=== PATIENT | male | born 1960 | race African-American/Black ===

== ENCOUNTER 2018-02-04 08:53 | Day surgery (SDC) | payer OTHER ==
[2018-02-03 14:45] VITALS: BMI 28.0
[2018-02-04 15:07] VITALS: TEMP 98.2
[2018-02-04 17:41] VITALS: BP 141/78; PULSE 74
== END 2018-02-04 16:00 | disposition home or self-care (01) ==
LOC: JASU-SURG 08:53
PROVIDERS: ATTEND Urology
PROC: 0TC78ZZ Extirpation of Matter from Left Ureter, Via Natural or Artificial Opening Endoscopic (ICD-10-PCS; principal; 2018-02-04)
PROC: 0T778DZ Dilation of Left Ureter with Intraluminal Device, Via Natural or Artificial Opening Endoscopic (ICD-10-PCS; 2018-02-04)
PROC: BT1FYZZ Fluoroscopy of Left Kidney, Ureter and Bladder using Other Contrast (ICD-10-PCS; 2018-02-04)
DX: N20.0 Calculus of kidney (principal); N40.0 Benign prostatic hyperplasia without lower urinary tract symptoms; N32.89 Other specified disorders of bladder
CPT/HCPCS: 36415; 76000-TC-FY; 81003; 81015; 82360; 87086; 88300-TC; 94760

== ENCOUNTER 2023-10-26 16:40 | Day surgery (SDC) | payer OTHER ==
[2023-10-26 16:59] VITALS: BMI 28.5
[2023-10-26] MEDS ORDERED: ACETAMINOPHEN 1000 MG/100 ML BAG IVPB ONE (17:39)
[2023-10-26] MEDS ORDERED: ACETAMINOPHEN INJECTION 100 ML IVPB ONE (18:48)
[2023-10-26 18:51] LABS: HEMATOCRIT 47.1 % (35.4-49); HEMOGLOBIN 15.7 GM/dL (11.7-16.9); MCH 27.6 pg (25.7-33.7); MCHC 33.3 g/dl (32.0-35.9); MEAN CELL VOLUME 82.9 fl (80-96); MEAN PLT VOLUME 8.1 fl (7.5-11.1); PLATELET COUNT 269 10^3/uL (134-434); RBC 5.68 M/mm3 (4.00-5.60); RDW 13.9 % (11.9-15.9); WHITE BLOOD COUNT 5.1 K/mm3 (4.0-10.0)
[2023-10-26 18:55] LABS: EPI CELLS 13 /uL (0-25.1); HYALINE CASTS 0 /uL (0-3.1); URINE APPEARANCE CLEAR; URINE BACTERIA 3 /uL (0-1359); URINE BILIRUBIN NEGATIVE (NEGATIVE); URINE COLOR YELLOW; URINE GLUCOSE (UA) NEGATIVE (NEGATIVE); URINE KETONE NEGATIVE (NEGATIVE); URINE LEUK ESTERASE NEGATIVE (NEGATIVE); URINE NITRITE NEGATIVE (NEGATIVE); URINE PROTEIN NEGATIVE (NEGATIVE); URINE RBC 20 /uL (0-23.9); URINE WBC 13 /uL (0-25.8)
[2023-10-26 19:06] LABS: INR 1.13 (0.83-1.09); PROTHROMBIN TIME (PATIENT) 13.1 SEC (9.7-13.0)
[2023-10-26 19:14] LABS: POTASSIUM 4.5 mmol/L (3.5-5.1)
[2023-10-26 19:17] LABS: ALBUMIN 3.5 g/dl (3.4-5.0); BLOOD UREA NITROGEN 21.2 mg/dL (7-18); CALCIUM 9.5 mg/dL (8.5-10.1)
[2023-10-26 19:20] LABS: CREATININE 1.8 mg/dL (0.55-1.3)
[2023-10-26 19:22] LABS: BILIRUBIN,TOTAL 0.5 mg/dL (0.2-1); TOT PROT 7.5 g/dl (6.4-8.2)
[2023-10-26] MEDS ORDERED: morphine CARPU-JECT 4 MG/1 ML DISP.SYRIN IVPUSH ONE (21:36)
[2023-10-26] MEDS ORDERED: morphine SULFATE 4 MG/ML VIAL ONE (21:48)
[2023-10-26] MEDS ORDERED: HYDROmorphone HCL 2 MG TABLET PO PRN (22:21)
[2023-10-26] MEDS: SODIUM CHLORIDE 1,000 ML IV SCH (23:56)
[2023-10-27] MEDS ORDERED: HYDROmorphone HCL 2 MG TABLET ONE (04:32)
[2023-10-27] MEDS ORDERED: morphine SULFATE 4 MG/ML VIAL ONE (04:58)
[2023-10-27] MEDS: morphine SULFATE 4 MG/ML VIAL IVPUSH PRN ×4 (05:00→14:56)
[2023-10-27] MEDS ORDERED: ACETAMINOPHEN 1000 MG/100 ML BAG IVPB ONE ×2 (06:06→10:45)
[2023-10-27] MEDS ORDERED: ACETAMINOPHEN INJECTION 100 ML IVPB ONE (06:06)
[2023-10-27 07:20] LABS: BASO % 0.5 % (0-2.0); EOS % 6.4 % (0-4.5); HEMATOCRIT 49.3 % (35.4-49); HEMOGLOBIN 16.9 GM/dL (11.7-16.9); LYMPH % 26.1 % (8-40); MCH 28.4 pg (25.7-33.7); MCHC 34.3 g/dl (32.0-35.9); MEAN PLT VOLUME 8.7 fl (7.5-11.1); MONO % 13.3 % (3.8-10.2); NEUT % 53.7 % (42.8-82.8); PLATELET COUNT 245 10^3/uL (134-434); RBC 5.94 M/mm3 (4.00-5.60); WHITE BLOOD COUNT 4.5 K/mm3 (4.0-10.0)
[2023-10-27 07:30] LABS: POTASSIUM 4.6 mmol/L (3.5-5.1)
[2023-10-27 07:36] LABS: ALBUMIN 3.6 g/dl (3.4-5.0); CALCIUM 9.3 mg/dL (8.5-10.1)
[2023-10-27 07:39] LABS: CREATININE 1.6 mg/dL (0.55-1.3)
[2023-10-27 07:41] LABS: BILIRUBIN,TOTAL 0.6 mg/dL (0.2-1); TOT PROT 7.4 g/dl (6.4-8.2)
[2023-10-27] MEDS ORDERED: TAMSULOSIN HCL 0.4 MG CAP PO SCH (08:30)
[2023-10-27] MEDS: SODIUM CHLORIDE 1,000 ML IV SCH ×2 (08:50→17:48)
[2023-10-27] MEDS: metFORMIN HCL 500 MG TABLET (FP) PO SCH ×2 (08:50→16:26)
[2023-10-27] MEDS ORDERED: amLODIPine BESYLATE 10 MG TABLET (FP) PO SCH (10:00)
[2023-10-27] MEDS ORDERED: HYDROCHLOROTHIAZIDE 25 MG TABLET (FP) PO SCH (10:00)
[2023-10-27] MEDS ORDERED: EZETIMIBE 10 MG TABLET (FP) PO SCH (10:00)
[2023-10-27] MEDS ORDERED: FINASTERIDE 5 MG TABLET (FP) PO SCH (10:00)
[2023-10-27] MEDS ORDERED: LISINOPRIL 5 MG TABLET PO SCH (10:00)
[2023-10-27] MEDS ORDERED: KETOROLAC TROMETHAMINE 30 MG/1 ML VIAL IM ONE (15:45)
[2023-10-27] MEDS ORDERED: ONDANSETRON 4 MG/2 ML VIAL IVPUSH PRN ×2 (19:24→20:21)
[2023-10-27] MEDS ORDERED: PROPOFOL 40 ML ONE (19:28)
[2023-10-27] MEDS ORDERED: MIDAZOLAM HCL 2 MG/2 ML SINGLE DOSE VIAL ONE (19:29)
[2023-10-27] MEDS ORDERED: LACTATED RINGERS SOLUTION 1,000 ML IV SCH ×2 (19:30→20:21)
[2023-10-27] MEDS ORDERED: ceFAZolin SODIUM 1 GM VIAL IVPB ONE (19:40)
[2023-10-27] MEDS ORDERED: SODIUM CHLORIDE 1,000 ML IV SCH (20:21)
[2023-10-27] MEDS ORDERED: morphine SULFATE 4 MG/ML VIAL IVPUSH PRN (20:21)
[2023-10-27] MEDS ORDERED: DOCUSATE SODIUM 100 MG CAPSULE (FP) PO SCH (22:00)
[2023-10-27] MEDS: DOCUSATE SODIUM 100 MG CAPSULE (FP) PO SCH (22:42)
[2023-10-28] MEDS: SODIUM CHLORIDE 1,000 ML IV SCH ×2 (00:05→23:11)
[2023-10-28] MEDS: metFORMIN HCL 500 MG TABLET (FP) PO SCH ×2 (07:39→17:01)
[2023-10-28] MEDS: TAMSULOSIN HCL 0.4 MG CAP PO SCH (08:33)
[2023-10-28 09:28] LABS: BASO % 0.3 % (0-2.0); HEMATOCRIT 45.2 % (35.4-49); HEMOGLOBIN 15.2 GM/dL (11.7-16.9); LYMPH % 14.7 % (8-40); MCH 27.8 pg (25.7-33.7); MCHC 33.6 g/dl (32.0-35.9); MEAN CELL VOLUME 82.7 fl (80-96); MEAN PLT VOLUME 8.4 fl (7.5-11.1); MONO % 9.7 % (3.8-10.2); NEUT % 75.3 % (42.8-82.8); PLATELET COUNT 283 10^3/uL (134-434); RBC 5.47 M/mm3 (4.00-5.60); RDW 13.6 % (11.9-15.9); WHITE BLOOD COUNT 5.6 K/mm3 (4.0-10.0)
[2023-10-28 09:43] LABS: POTASSIUM 4.5 mmol/L (3.5-5.1)
[2023-10-28 09:48] LABS: CALCIUM 9.3 mg/dL (8.5-10.1)
[2023-10-28 09:49] LABS: BLOOD UREA NITROGEN 25.1 mg/dL (7-18)
[2023-10-28 09:52] LABS: CREATININE 1.6 mg/dL (0.55-1.3)
[2023-10-28] MEDS ORDERED: POLYETHYLENE GLYCOL (HEALTHYLAX) 3350 17 GM PACKET PO SCH (10:00)
[2023-10-28] MEDS: HYDROCHLOROTHIAZIDE 25 MG TABLET (FP) PO SCH (10:14)
[2023-10-28] MEDS: EZETIMIBE 10 MG TABLET (FP) PO SCH (10:15)
[2023-10-28] MEDS: FINASTERIDE 5 MG TABLET (FP) PO SCH (10:15)
[2023-10-28] MEDS: LISINOPRIL 5 MG TABLET PO SCH (10:15)
[2023-10-28] MEDS: amLODIPine BESYLATE 10 MG TABLET (FP) PO SCH (10:15)
[2023-10-28] MEDS: POLYETHYLENE GLYCOL (HEALTHYLAX) 3350 17 GM PACKET PO SCH (10:15)
[2023-10-28] MEDS: DOCUSATE SODIUM 100 MG CAPSULE (FP) PO SCH (22:43)
[2023-10-29] MEDS: metFORMIN HCL 500 MG TABLET (FP) PO SCH (07:09)
[2023-10-29] MEDS: EZETIMIBE 10 MG TABLET (FP) PO SCH (09:06)
[2023-10-29] MEDS: HYDROCHLOROTHIAZIDE 25 MG TABLET (FP) PO SCH (09:06)
[2023-10-29] MEDS: FINASTERIDE 5 MG TABLET (FP) PO SCH (09:06)
[2023-10-29] MEDS: POLYETHYLENE GLYCOL (HEALTHYLAX) 3350 17 GM PACKET PO SCH (09:06)
[2023-10-29] MEDS: amLODIPine BESYLATE 10 MG TABLET (FP) PO SCH (09:06)
[2023-10-29] MEDS: TAMSULOSIN HCL 0.4 MG CAP PO SCH (09:06)
[2023-10-29] MEDS: LISINOPRIL 5 MG TABLET PO SCH (09:06)
[2023-10-29 12:26] VITALS: PULSE 75
[2023-10-29 14:40] VITALS: BP 126/71; RESP 20; TEMP 99
== END 2023-10-29 14:54 | disposition home or self-care (01) ==
LOC: JER 16:40 → UNDOADMIN 21:18 → JERBED 21:18 → J7W 10-27 08:04 → JASUSAT 10-29 12:29 → J7W 10-29 12:29 → JASUSAT 10-29 14:54
PROVIDERS: ATTEND Family Medicine
PROC: 0TC68ZZ Extirpation of Matter from Right Ureter, Via Natural or Artificial Opening Endoscopic (ICD-10-PCS; principal; 2023-10-29)
PROC: 0T768DZ Dilation of Right Ureter with Intraluminal Device, Via Natural or Artificial Opening Endoscopic (ICD-10-PCS; 2023-10-29)
PROC: BT1DYZZ Fluoroscopy of Right Kidney, Ureter and Bladder using Other Contrast (ICD-10-PCS; 2023-10-29)
DX: N20.1 Calculus of ureter (principal); N13.5 Crossing vessel and stricture of ureter without hydronephrosis
CPT/HCPCS: 36415; 74176-TC; 76000-TC-FY; 80048; 80053; 81003; 82962; 85025; 85027; 85610; 86850; 86900; 86901; 87086; 94760; 99285-25; C1758; C2617; J0131

== ENCOUNTER 2024-01-17 05:13 | Day surgery (SDC) | payer OTHER ==
[2024-01-10 12:52] VITALS: BMI 28.0
[2024-01-17] MEDS ORDERED: PROPOFOL 20 ML ONE (12:51)
[2024-01-17] MEDS ORDERED: FENTANYL CITRATE/PF 50 MCG/ML VIAL ONE ×4 (12:51→15:14)
[2024-01-17] MEDS ORDERED: MIDAZOLAM HCL 2 MG/2 ML SINGLE DOSE VIAL ONE (12:51)
[2024-01-17] MEDS ORDERED: DEXAMETHASONE SOD PHOSPHATE 4 MG/1 ML VIAL ONE (12:54)
[2024-01-17] MEDS ORDERED: ONDANSETRON 4 MG/2 ML VIAL ONE (12:54)
[2024-01-17] MEDS ORDERED: KETOROLAC TROMETHAMINE 30 MG/1 ML VIAL ONE (12:54)
[2024-01-17] MEDS: ceFAZolin 2 GRAM PREMIX BAG IVPB ONE (13:20)
[2024-01-17] MEDS ORDERED: ceFAZolin SODIUM 1 GM VIAL ONE (13:24)
[2024-01-17] MEDS ORDERED: oxyCODONE HCL 5 MG TABLET PO PRN (14:05)
[2024-01-17] MEDS: LACTATED RINGERS SOLUTION 1,000 ML IV SCH (15:25)
[2024-01-17 16:08] VITALS: RESP 18; TEMP 98
[2024-01-17 17:31] VITALS: BP 120/70; PULSE 78
== END 2024-01-17 18:32 | disposition home or self-care (01) ==
LOC: JASU-SURG 05:13
PROVIDERS: ATTEND Urology
PROC: 0TC48ZZ Extirpation of Matter from Left Kidney Pelvis, Via Natural or Artificial Opening Endoscopic (ICD-10-PCS; principal; 2024-01-17 14:00)
PROC: 0T778DZ Dilation of Left Ureter with Intraluminal Device, Via Natural or Artificial Opening Endoscopic (ICD-10-PCS; 2024-01-17 14:00)
PROC: 0T778DZ Dilation of Left Ureter with Intraluminal Device, Via Natural or Artificial Opening Endoscopic (ICD-10-PCS; 2024-01-17 14:00)
PROC: BT1FYZZ Fluoroscopy of Left Kidney, Ureter and Bladder using Other Contrast (ICD-10-PCS; 2024-01-17 14:00)
DX: N20.0 Calculus of kidney (principal); N40.0 Benign prostatic hyperplasia without lower urinary tract symptoms
CPT/HCPCS: 76000-TC-FY; 94760; C1758; C2617